=== PATIENT | male | born 1955 | race Caucasian/White ===

== ENCOUNTER 2017-08-14 10:24 | Emergency (ER) | payer SELFPAY ==
[2017-08-14] MEDS ORDERED: LIDOCAINE 1% (MPF) 30 ML INJ SC (11:30)
[2017-08-14] MEDS ORDERED: LIDOCAINE 1% (MDV) 20 ML INJ SC (11:30)
[2017-08-14] MEDS: LIDOCAINE 1% (MDV) 10 ML INJ INFIL (12:34)
== END 2017-08-14 12:45 | disposition home or self-care (01) ==
LOC: FTE 10:24
DX: L03.011 Cellulitis of right finger (principal); I10 Essential (primary) hypertension; E11.9 Type 2 diabetes mellitus without complications; F17.210 Nicotine dependence, cigarettes, uncomplicated
CPT/HCPCS: 99283